=== PATIENT | female | born 1930 | race Caucasian/White ===

== ENCOUNTER 2016-09-23 11:08 | Emergency (ER) | payer OTHER ==
--- NOTE | 2016-09-23 11:11 | PDOC ---
Attending Attestation - Resident Resident Name: KelsieRosalba - ED Attending Attestation I have performed the following: I have examined & evaluated the patient, The case was reviewed & discussed with the resident, I agree w/resident's findings & plan, Exceptions are as noted - HPI HPI: 09/23/16 11:10 The patient is an 86-year-old female with a significant past medical history of anxiety and depression, who presents the emergency department with symptoms that she is describing as "a panic attack." She discontinued Zoloft several months ago and re-started it yesterday evening due to increased anxiety. She continues to be anxious. She denies chest/neck/back/teeth/shoulder pain, dyspnea, palpitations. 09/23/16 11:39 - Physicial Exam PE: 09/23/16 11:10 She is well-appearing and in no acute distress She is mildly anxious 09/23/16 11:23 EKG: Normal sinus rhythm at 66, left axis deviation, left anterior hemiblock, early R-wave progression, no ST changes 09/23/16 11:37 - Medical Decision Making 09/23/16 11:11 The patient is well-appearing and in no acute distress Her clinical presentation is very consistent with panic attack Will obtain EKG 09/23/16 11:38 09/23/16 11:38 EKG noted Will administer oral ativan 09/23/16 11:44 09/23/16 12:07 09/23/16 12:05 Symptoms have almost completely resolved She will continue Zoloft as prescribed We will dispense 0.5 mg of Ativan 3 times a day when necessary anxiety Clinical impression: Panic attack; resolved I discussed the physical exam findings, ancillary test results and final diagnoses with the patient. I answered all of the patient's questions. The patient was satisfied with the care received and felt comfortable with the discharge plan and treatment plan. The patient will call their primary care physician within 24 hours to arrange follow-up and will return to the Emergency Department with any new, persistent or worsening symptoms. 09/23/16 12:09 Discharge Disposition - Diagnosis Panic attack - Discharge Dispostion Disposition: HOME Condition at time of disposition: Improved - Prescriptions Prescriptions: Lorazepam [Ativan] 0.5 mg PO TID PRN #21 tablet MDD 3 PRN Reason: Anxiety - Referrals Referrals: Kenneth Mesa MD [Primary Care Provider] - Call tomorrow - Patient Instructions Additional Instructions: Return to the emergency department immediately with ANY new, persistent or worsening symptoms. You MUST call and follow up with your doctor tomorrow. Please make sure your doctor reviews the results of your emergency department evaluation.
[2016-09-23 11:22] VITALS: TEMP 97.5; BMI 21.2
--- NOTE | 2016-09-23 11:24 | PDOC ---
History of Present Illness - General Chief Complaint: Psychiatric Stated Complaint: IM HAVING A PANIC ATTACK Time Seen by Provider: 09/23/16 11:10 History Source: Patient Exam Limitations: No Limitations - History of Present Illness Initial Comments: 09/23/16 11:50 The pt is a 86 year old female with a PMH of anxiety, depression and HTN who presents to ED complaining of having panic attack. 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 When she has attack she feels scared and tries to "walk it away". She had panic attacks in the past. The pt was taking Zoloft for many years and stopped taking that 4-5 months ago. Yesterday her daughter called her PCP for refill of Zoloft. She took it with some short relief. She also took several tablets of Holy Basil. She denies chest pain, SONB, N/V, diarrhea, fever. She denies dysuria. Past History - Past Medical History Allergies/Adverse Reactions: Allergies Allergy/AdvReac Type Severity Reaction Status Date / Time alprazolam [From Xanax] AdvReac Verified 09/23/16 11:10 [facility] Allergy Rash Uncoded 04/02/15 13:07 Home Medications: Ambulatory Orders Simvastatin [Zocor] 10 mg PO HS 03/26/12 Levothyroxine Sodium [Unithroid] 50 mcg PO DAILY 09/23/16 Lorazepam [Ativan] 0.5 mg PO TID PRN #21 tablet MDD 3 09/23/16 Hypercholesterolemia: Yes Psychiatric Problems: Yes (DEPRESSION,AXIETY) Thyroid Disease: Yes (HYPOTHYROID) - Psycho/Social/Smoking Cessation Hx Anxiety: Yes Suicidal Ideation: No Smoking Status: No Smoking History: Never smoked Number of Cigarettes Smoked Daily: 0 Hx Alcohol Use: No Drug/Substance Use Hx: No Substance Use Type: None Review of Systems - Review of Systems Able to Perform ROS?: Yes Comments:: 09/23/16 12:07 REVIEW OF SYSTEMS CONSTITUTIONAL: Absent: fever, chills, diaphoresis, generalized weakness, malaise, loss of appetite, weight change HEENT: Absent: rhinorrhea, nasal congestion, throat pain, throat swelling, difficulty swallowing, mouth swelling, ear pain, eye pain, visual changes CARDIOVASCULAR: Absent: chest pain, syncope, palpitations, irregular heart rate, lightheadedness , peripheral edema RESPIRATORY: Absent: cough, shortness of breath, dyspnea with exertion, orthopnea, wheezing, stridor, hemoptysis GASTROINTESTINAL: Absent: abdominal pain, abdominal distension, nausea, vomiting, diarrhea, constipation, melena, hematochezia GENITOURINARY: Absent: dysuria, frequency, urgency, hesitancy, hematuria, flank pain, genital pain MUSCULOSKELETAL: Absent: myalgia, arthralgia, joint swelling, back pain, neck pain SKIN: Absent: rash, itching, pallor NEUROLOGIC: Absent: headache, focal weakness or paresthesias, dizziness, unsteady gait, seizure, mental status changes, bladder or bowel incontinence PSYCHIATRIC: Absent: anxiety, depression Is the patient limited Spanish proficient: Yes *Physical Exam - Vital Signs Last Vital Signs Temp Pulse Resp BP Pulse Ox 97.5 F L 67 20 154/101 97 09/23/16 11:09 09/23/16 11:09 09/23/16 11:09 09/23/16 11:09 09/23/16 11:09 - Physical Exam Comments: 09/23/16 12:06 GENERAL: The patient is awake, alert, and fully oriented, in no acute distress. HEAD: Normal with no signs of trauma. EYES: PERRL, extraocular movements intact, sclera anicteric, conjunctiva clear. No ptosis. ENT: Ears normal, nares patent, oropharynx clear without exudates, moist mucous membranes. NECK: Trachea midline, full range of motion, supple. LUNGS: Breath sounds equal, clear to auscultation bilaterally, no wheezes, no crackles, no accessory muscle use. HEART: Regular rate and rhythm, S1, S2 without murmur, rub or gallop. ABDOMEN: Soft, nontender, nondistended, normoactive bowel sounds, no guarding, no rebound, no hepatosplenomegaly, no masses. EXTREMITIES: 2+ pulses, warm, well-perfused, no edema. NEUROLOGICAL: Normal speech, gait not observed. PSYCH: Normal mood, normal affect. SKIN: Warm, dry, normal turgor, no rashes or lesions noted Medical Decision Making - Medical Decision Making 09/23/16 12:08 The pt is complaining of having panic attack. We ordered small dose of Ativan 0.5 mg and continue to take that as outpatient as well as her usual dose of Zoloft. *DC/Admit/Observation/Transfer Diagnosis at time of Disposition: Panic attack - Discharge Dispostion Disposition: HOME Condition at time of disposition: Improved Admit: No - Prescriptions Prescriptions: Lorazepam [Ativan] 0.5 mg PO TID PRN #21 tablet MDD 3 PRN Reason: Anxiety - Referrals Referrals: Kenneth Mesa MD [Primary Care Provider] - Call tomorrow - Patient Instructions Additional Instructions: Return to the emergency department immediately with ANY new, persistent or worsening symptoms. Take Ativan as neededv and continue taking Zoloft. You MUST call and follow up with your doctor tomorrow. Please make sure your doctor reviews the results of your emergency department evaluation.
[2016-09-23] MEDS ORDERED: LORazepam 0.5 MG TABLET PO ONE (11:44)
[2016-09-23] MEDS ORDERED: LORazepam 0.5 MG TABLET ONE ×2 (11:45→11:46)
[2016-09-23 12:30] VITALS: BP 151/72; PULSE 60
--- NOTE | 2016-09-25 20:37 | EKG ---
Test Reason : Blood Pressure : / mmHG Vent. Rate : 064 BPM Atrial Rate : 064 BPM P-R Int : 164 ms QRS Dur : 110 ms QT Int : 424 ms P-R-T Axes : 064 -62 041 degrees QTc Int : 437 ms NORMAL SINUS RHYTHM LEFT ANTERIOR FASCICULAR BLOCK NO PREVIOUS ECGS AVAILABLE Confirmed by MD TOMAS, ALICIA ([id number]) on 09/25/2016 8:37:11 PM Referred By: JANEL MARSHALL Confirmed By:ALICIA MARIN MD
== END 2016-09-23 12:30 | disposition home or self-care (01) ==
LOC: FER 11:08
DX: F41.0 Panic disorder [episodic paroxysmal anxiety] (principal); F41.8 Other specified anxiety disorders; I10 Essential (primary) hypertension; E03.9 Hypothyroidism, unspecified; E78.00 Pure hypercholesterolemia, unspecified
CPT/HCPCS: 93005; 93010; 99282-25

== ENCOUNTER 2019-08-19 10:11 | Emergency (ER) | payer OTHER ==
--- NOTE | 2019-08-19 10:13 | PDOC ---
History of Present Illness - General Chief Complaint: Palpitations Stated Complaint: HEART BEATING Time Seen by Provider: 08/19/19 10:12 Past History - Past Medical History Allergies/Adverse Reactions: Allergies Allergy/AdvReac Type Severity Reaction Status Date / Time alprazolam [From Xanax] AdvReac Verified 08/19/19 10:22 [facility] Allergy Rash Uncoded 08/19/19 10:22 Home Medications: Ambulatory Orders Simvastatin [Zocor] 10 mg PO HS 03/26/12 Levothyroxine [Synthroid -] 75 mcg PO DAILY 08/19/19 Sertraline HCl [Zoloft -] 50 mg PO HS 08/19/19 Hypercholesterolemia: Yes Psychiatric Problems: Yes (DEPRESSION,AXIETY) Thyroid Disease: Yes (HYPOTHYROID) - Psycho Social/Smoking Cessation Hx Smoking Status: No Smoking History: Never smoked Number of Cigarettes Smoked Daily: 0 Hx Alcohol Use: No Drug/Substance Use Hx: No Substance Use Type: None ED Treatment Course - LABORATORY CBC & Chemistry Diagram: 08/19/19 12:05 08/19/19 12:05 Medical Decision Making - Medical Decision Making 08/19/19 10:55 HPI: 89yo F hx hypothyroidism (x30yrs, on Levothyroxine, recent increase dose from 50 to 75 in 06/2019), HLD, MDD, known heart murmur, and anxiety on Sertraline presents from home (told to come in by PCP Dr Mesa via phone) for 5 days of intermittent palpitations. Pt describes it as an "awareness of heart beating", intermittent since Sunday, approx 10x, not associated with relaxing or exertion , associated with vague SOB and nausea, not similar to panic attacks of past. Pt does endorse similar awareness of heart beating intermittently x 1 year. Endorses increased RHODES x months. Denies fever, chills, fatigue, headache, dizziness, syncope, numbness/tingling, weakness, vision changes, cough, chest pain, leg swelling, calf tenderness, hx DVT/PE, abdominal pain, blood in stool, diarrhea, constipation, vomiting, dysuria, hematuria, confusion. 05/17/17 - echo LVEF 70-75%, grade 1 diastolic dysfunction, mild /AR/MR/TR 05/02/18 - chest CT 4cm ascending aorta dilatation and tiny pulmonary/ subpleural nodules PCP [facility] - none (but would prefer Jae Pereira = 's welder and fitter at [place]) ROS: Constitutional: Negative for chills, fever, fatigue, diaphoresis. HENT: Negative for sore throat, rhinorrhea, congestion. Eyes: Negative for visual disturbance. Respiratory: Positive for shortness of breath. Negative for cough, and wheezing. Cardiovascular: Positive for palpitations, RHODES. Negative for chest pain, and leg swelling. Gastrointestinal: Positive for nausea. Negative for abdominal pain, blood in stool, constipation, diarrhea, and vomiting. Genitourinary: Negative for dysuria, flank pain, and hematuria. Musculoskeletal: Negative for myalgias, back pain, and neck pain. Skin: Negative for rash. Neurological: Negative for light-headedness, dizziness, vertigo, syncope, weakness, numbness and headaches. Psychiatric/Behavioral: Negative for behavioral problems and confusion. PE: Gen: Alert, NAD, comfortable-appearing. HEENT: PERRL, EOMI, MMM, NCAT. No conjunctival pallor. Sclera are non-icteric. Oropharynx is clear. CV: Regular rate and irregular rhythm. Soft holosystolic murmur. No rubs, or gallops. PULM: No resp distress. CTAB, no wheezes, rales, or rhonchi. ABD: soft, NT/ND, no rebound tenderness or guarding, no CVA tenderness. BACK: No TTP of c/t/l-spine. No step-offs or deformities. MSK: No bony deformities. 2+ pulses in all extremities. NEURO: AAOx3. PERRL. No gross CN deficits. Strength and sensation grossly intact throughout. EXTREMITIES: No cyanosis. No clubbing. No edema. No calf tenderness. PSYCH: Normal mood and thought pattern. SKIN: Warm and dry. Normal capillary refill. No rashes. No jaundice. MDM: 89yo F hx hypothyroidism (x30yrs, on Levothyroxine, recent increase dose from 50 to 75 in 06/2019), HLD, MDD, known heart murmur, and anxiety on Sertraline presents from home (told to come in by PCP Dr Mesa via phone) for 5 days of intermittent palpitations. Hemodynamically stable, afebrile, soft holosystolic murmur, irregular rhythm. Ddx: arrhythmia, ACS/ME, metabolic derangement, thyroid pathology, anemia, infection, anxiety -EKG -CBC, CMP, Cardiac profile, TSH, Mg, Phos, UA -CXR -Dispo: pending w/u 08/19/19 13:46 EKG reviewed: sinus rhythm w/PACs, 73bpm, WV interval 170ms, QTc 458ms, L anterior fascicular block, no e/o acute ischemia, when compared with 09/23/16 PACs are now present CXR reviewed: no acute pathology Labs reviewed. No concerning findings. Pt has been asymptomatic since arrival in ED. Spoke with Dr Mesa - agrees with plan and cardio f/u. Will discharge home with PCP and welder and fitter f/u. Return precautions given. Pt understands all discharge instructions and all questions were answered. 08/19/19 17:51 TSH 0.23 - pt called and informed of result and need for further testing by PCP. Pt expressed understanding and will contact PCP tomorrow. Discharge - Discharge Information Problems reviewed: Yes Clinical Impression/Diagnosis: Palpitations Condition: Good Disposition: HOME - Admission No - Follow up/Referral Referrals: Kenneth Mesa MD [Primary Care Provider] - Katie Cifuentes MD [Staff Physician] - Matt Mccord MD [Staff Physician] - Darius Syed MD [Staff Physician] - - Patient Discharge Instructions Patient Printed Discharge Instructions: DI for Palpitations Additional Instructions: You have been seen in the Emergency Department for your awareness of your heart. Your EKG, chest X-ray, and labs, including Troponin (a heart enzyme), show no signs concerning for an emergent condition such as a heart attack or pneumonia. The cause of your symptoms is uncertain at this time, so you will need further evaluation. Follow-up with your primary care doctor within 1 week. We have also given you referrals for multiple cardiologists (heart doctors) - call one of them to make an appointment within 1 week for further evaluation of your heart (such as a stress test or echocardiogram). Return to the ED immediately if you experience chest pain, difficulty breathing , dizziness, passing out, or any other new or worsening symptom. - Post Discharge Activity
[2019-08-19 10:39] VITALS: TEMP 98.3; BMI 20.2
--- NOTE | 2019-08-19 11:08 | PDOC ---
Attending Attestation - Resident Resident Name: Millie Gomez - ED Attending Attestation I have performed the following: I have examined & evaluated the patient, The case was reviewed & discussed with the resident, I agree w/resident's findings & plan - HPI HPI: 08/19/19 11:08 89 year old female with a PMH of anxiety, depression and HTN, HLD presenting with palpitations, intermittently x 4 days, where she feels the sensation of her heart beating. (on Levothyroxine, recent increase dose from 50 to 75mg in 06/2019), usually takes Sertraline for depression, which she is compliant with taking told to come in by PCP Dr Mesa via phone no chest pain, sob, exertional component. no URI sx, no cough or congestion no syncope no neurologic symptoms. 08/19/19 13:43 - Physicial Exam PE: 08/19/19 11:07 Agree with the resident's HPI and PE as documented in the electronic medical record. NAD, well appearing, EOMI, PERRL, nl conjunctiva, anicteric; neck supple. lungs clear, regular rate, soft holosystolic murmur, abdomen soft nontender. No rebound, no guarding. Back nontender. POP x4, no focal neuro deficits. No peripheral edema. normal color for ethnicity, WWP. 08/19/19 13:42 - Medical Decision Making 08/19/19 11:07 Vital Signs Temp Pulse Resp BP Pulse Ox 98.3 F 71 16 152/68 98 08/19/19 10:12 08/19/19 10:12 08/19/19 10:12 08/19/19 10:12 08/19/19 10:12 DDx palp: ACS, coronary vasospasm, NSTEMI, arrhythmia, unstable angina, PE, PTX , pulmonary edema,, dissection, PUD, esophageal spasm, GERD, gastritis, costochondritis, pneumonia, pleurisy, pericarditis/myocarditis. dehydration, electrolyte/metabolic derangements. Considered but clinically doubt based on HPI and PE: Low suspicion for pulmonary embolism or dissection. EKG normal sinus rhythm at 73 bpm, no interval abnormalities, narrow QRS, ST and T wave segments and morphology normal. PACs Chest pain HEART score 3 which denotes Low risk and probability for ACS, less than 1% risk for MACE at 4-6 wks labs and lytes wnl, trop neg, reassuring, less likely cardiac or ACS, given time frame of sx pt does have holosystlic murmur and prior echo in past with mitral regurg/ stenosis, which is known previously. no chest pain, syncope, SOB neuro intact. feels comfortable, asymptomatic, wishes for discharge home d/w Dr Mesa, primary doctor and updated with results of workup. agreeable with the plan and outpatient followup, for monitor, repeat echo Pt to be discharged in stable condition. Patient made aware of clinical impression, treatment recommendations and disposition plan, return precautions discussed (including but not limited to new or persistent/worsening symptoms, pain, fevers, or signs of infection, chest pain, respiratory distress, inability to tolerate oral intake, dehydration, syncope, or neurologic changes) . Follow up with PMD and/or cardiologists as recommended, follow up information provided, take medications as instructed for duration of time. continue with supportive care, avoid triggers and precipitants. All questions answered to patient's satisfaction and expressed understanding and comfort with this. At the time of discharge, the patient is alert, clinically improved, tolerating po and verbalizes understanding of instructions, satisfied with the care received and felt comfortable with the plan. Patient does not suffer from an acute life- threatening medical condition at this time and is safe for outpatient follow- up. 08/19/19 13:46 Heart Score/ECG Review - History History: Slightly suspicious - Electrocardiogram EKG: Normal - Age Age: >/= 65 - Risk Factors Risk Factors Heart Score: Yes Hx Hypercholesterolemia, Yes Hx Hypertension Based on the list above the patient has:: 1-2 risk factors - Troponin Troponin: </= normal limit - Score Heart Score - Total: 3 #1 ECG reviewed & interpreted by me at: 10:25 General ECG Interpretation: Sinus Rhythm, Normal Rate, Normal Intervals 08/19/19 11:08 EKG normal sinus rhythm at 73 bpm, no interval abnormalities, narrow QRS, ST and T wave segments and morphology normal. PACs
[2019-08-19 12:22] LABS: BASO % 0.6 % (0-2.0); HEMOGLOBIN 13.6 GM/dl (10.7-15.3)
[2019-08-19 12:24] LABS: HEMATOCRIT 40.5 % (32.4-45.2); LYMPH % 23.3 % (8-40); MCHC 33.7 g/dl (32.0-36.0); MEAN CELL VOLUME 92.1 fl (80-96); MEAN PLT VOLUME 7.9 fl (7.5-11.1); MONO % 8.3 % (3.8-10.2); NEUT % 66.8 % (42.8-82.8); PLATELET COUNT 266 K/MM3 (134-434); RBC 4.39 M/mm3 (3.60-5.2); RDW 12.5 % (11.6-15.6); WHITE BLOOD COUNT 6.4 K/mm3 (4.0-10.8)
[2019-08-19 12:29] LABS: ALBUMIN 3.9 g/dl (3.4-5.0); BILIRUBIN,TOTAL 0.7 mg/dl (0.2-1); CALCIUM 9.3 mg/dl (8.5-10); CREATININE 0.7 mg/dl (0.55-1.3); MAGNESIUM 2.1 mg/dL (1.8-2.4); PHOSPHOROUS 3.5 mg/dl (2.5-4.9); POTASSIUM 4.2 mmol/L (3.5-5.1); TOT PROT 6.4 g/dl (6.4-8.2)
[2019-08-19 12:54] VITALS: BP 159/80; PULSE 66
[2019-08-19 13:01] LABS: EPITHELIAL CELLS RARE /hpf
--- NOTE | 2019-08-20 10:44 | EKG ---
Test Reason : Blood Pressure : / mmHG Vent. Rate : 073 BPM Atrial Rate : 073 BPM P-R Int : 170 ms QRS Dur : 100 ms QT Int : 416 ms P-R-T Axes : 064 -65 051 degrees QTc Int : 458 ms SINUS RHYTHM WITH PREMATURE ATRIAL COMPLEXES LEFT ANTERIOR FASCICULAR BLOCK ABNORMAL ECG WHEN COMPARED WITH ECG OF 23-SEP-2016 11:18, PREMATURE ATRIAL COMPLEXES ARE NOW PRESENT Confirmed by Dallas Johns MD ([id number]) on 08/20/2019 10:44:19 AM Referred By: NIKI CHERRY Confirmed By:Dallas Johns MD
== END 2019-08-19 13:48 | disposition home or self-care (01) ==
LOC: FER 10:11
DX: R00.2 Palpitations (principal); Z88.8 Allergy status to other drugs, medicaments and biological substances; Z91.09 Other allergy status, other than to drugs and biological substances; E03.9 Hypothyroidism, unspecified
CPT/HCPCS: 36415; 71046-TC-FY; 80053; 81003; 81015; 82550; 83735; 84100; 84443; 84484; 85025; 93005; 99285-25